=== PATIENT | female | born 1990 | race Caucasian/White ===

== ENCOUNTER 2022-11-18 20:35 | Emergency (ER) | payer OTHER ==
[~2022-11-18] VITALS: Ht 167.6 cm; Wt 78.9 kg
[2022-11-18 22:26] VITALS: BP 123/85; TEMP 98.1; O2SAT 98
== END 2022-11-18 22:43 | disposition home or self-care (01) ==
LOC: ER 20:52
DX: M54.12 Radiculopathy, cervical region (principal); M62.838 Other muscle spasm; F32.A Depression, unspecified; F41.9 Anxiety disorder, unspecified